=== PATIENT | male | born 1955 | race Caucasian/White ===

== ENCOUNTER 2019-07-14 21:31 | Inpatient (IN) ==
[2019-07-14] MEDS ORDERED: Diazepam INJ CARPUJECT 5 MG/ML ONE (21:38)
[2019-07-14] MEDS ORDERED: Diazepam INJ CARPUJECT 5 MG/ML IM ONE (22:03)
[2019-07-14 23:06] LABS: ABS Lymphocytes 2.2 10^3/ul (1.0-4.8); ABS Monocytes 0.4 10^3/ul (0-0.8); ABS Neutrophils 2.3 10^3/ul (1.5-7.7); Eosinophil % 0.6 %; Hematocrit 37 % (42-52); Hemoglobin 12.7 g/dL (14.0-18.0); Lymphocyte % 44.6 %; Mean Corpuscular HGB Conc 34 g/dL (31-36); Mean Corpuscular Hemoglobin 31 pg (27-31); Mean Corpuscular Volume 92 fL (80-94); Mean Platelet Volume 8.3 fL (7.4-10.4); Nucleated Red Blood Cells % 0.1; Platelet Count 224 10^3/uL (150-450); Red Blood Count 4.07 10^6 /uL (4.18-5.48); Red Cell Distribution Width 14 % (10-15); White Blood Count 4.9 10^3/uL (3.5-10.8)
[2019-07-14 23:21] LABS: Albumin 4.1 g/dL (3.2-5.2); Calcium 9.3 mg/dL (8.6-10.3); EGFR African American 109.8 (>60); EGFR Non-African American 90.7 (>60); Globulin 2.1 g/dL (2-4); Indirect Bilirubin 0.2 mg/dL (0.3-1.0); Potassium 3.7 mmol/L (3.5-5.0); Total Bilirubin 0.3 mg/dL (0.2-1.0); Total Protein 6.2 g/dL (6.4-8.9)
[2019-07-14 23:23] LABS: Urine Benzodiazepine Screen Presumptive Positive (None Detect); Urine Cannabinoids Screen None Detected (None Detect); Urine Opiates Screen None Detected (None Detect)
[2019-07-14 23:48] LABS: TSH Ultra Thyroid Stim Horm 0.92 mcIU/mL (0.34-5.60)
[2019-07-14 23:50] LABS: Free T4 0.8 ng/dL (0.61-1.12)
[2019-07-15 00:41] LABS: Urine Appearance Clear; Urine Bilirubin Negative (Negative); Urine Blood Negative (Negative); Urine Color Yellow; Urine Glucose Negative (Negative); Urine Ketones Negative (Negative); Urine Nitrite Negative (Negative); Urine Protein Negative (Negative); Urine Specific Gravity 1.031 (1.010-1.030); Urine Urobilinogen Negative (Negative)
[2019-07-15] MEDS ORDERED: LORazepam 2 mg VIAL 1 ml IV PUSH ONE (00:44)
[2019-07-15] MEDS ORDERED: Lorazepam PYXIS KEY PRN ×2 (00:44→01:10)
[2019-07-15] MEDS ORDERED: Lorazepam PYXIS KEY ONE (00:48)
[2019-07-15] MEDS ORDERED: LORazepam 2 mg VIAL 1 ml IV PUSH PRN ×2 (01:10→11:40)
[2019-07-15] MEDS ORDERED: Haloperidol 5 mg/ml SDV IV/IM 5 MG/ML AMP IV SLOW PU PRN (01:10)
[2019-07-15] MEDS ORDERED: NS 0.9% 1000 ml BAG 1,000 ML IV SCH (01:15)
[2019-07-15] MEDS ORDERED: Senna TAB 8.6 mg TAB PO PRN (01:33)
[2019-07-15] MEDS ORDERED: Docusate LIQ 100 MG/10 ML UDC PO PRN (01:35)
[2019-07-15] MEDS ORDERED: Haloperidol 5 mg/ml SDV IV/IM 5 MG/ML AMP IV SLOW PU ONE (02:00)
[2019-07-15] MEDS: Aspirin EC 81 mg TAB.EC (enteric coated) PO SCH (07:44)
[2019-07-15] MEDS: Enoxaparin 40 MG/0.4 ML SYR SUBCUT SCH (07:44)
[2019-07-16] MEDS ORDERED: Haloperidol 5 mg/ml SDV IV/IM 5 MG/ML AMP IM PRN (09:06)
[2019-07-16] MEDS ORDERED: LORazepam 2 mg VIAL 1 ml IV PUSH PRN ×3 (09:06→15:12)
[2019-07-16] MEDS: Enoxaparin 40 MG/0.4 ML SYR SUBCUT SCH (09:18)
[2019-07-16] MEDS: Aspirin EC 81 mg TAB.EC (enteric coated) PO SCH (09:18)
[2019-07-16] MEDS ORDERED: Lorazepam PYXIS KEY PRN (15:51)
[2019-07-16] MEDS: LORazepam 2 mg VIAL 1 ml IV PUSH PRN (17:10)
[2019-07-17] MEDS: LORazepam 2 mg VIAL 1 ml IV PUSH PRN ×2 (02:21→13:39)
[2019-07-17] MEDS: Aspirin EC 81 mg TAB.EC (enteric coated) PO SCH (09:23)
[2019-07-17] MEDS: Enoxaparin 40 MG/0.4 ML SYR SUBCUT SCH (09:23)
[2019-07-17] MEDS: Ziprasidone IM 20 mg VIAL 1 ml VIAL IM PRN (11:30)
[2019-07-18] MEDS: Aspirin EC 81 mg TAB.EC (enteric coated) PO SCH (08:45)
[2019-07-18] MEDS: Enoxaparin 40 MG/0.4 ML SYR SUBCUT SCH (08:45)
[2019-07-18] MEDS: LORazepam 2 mg VIAL 1 ml IV PUSH PRN (09:34)
[2019-07-18] MEDS: Ziprasidone IM 20 mg VIAL 1 ml VIAL IM PRN (12:33)
[2019-07-19] MEDS: LORazepam 2 mg VIAL 1 ml IV PUSH PRN ×3 (00:56→17:20)
[2019-07-19] MEDS: Aspirin EC 81 mg TAB.EC (enteric coated) PO SCH (09:25)
[2019-07-19] MEDS: Enoxaparin 40 MG/0.4 ML SYR SUBCUT SCH (09:25)
[2019-07-19] MEDS: Ziprasidone IM 20 mg VIAL 1 ml VIAL IM PRN (12:05)
[2019-07-20] MEDS: Aspirin EC 81 mg TAB.EC (enteric coated) PO SCH (11:47)
[2019-07-20] MEDS: Enoxaparin 40 MG/0.4 ML SYR SUBCUT SCH (11:47)
[2019-07-20] MEDS ORDERED: Haloperidol 5 mg/ml SDV IV/IM 5 MG/ML AMP IV SLOW PU ONE (12:06)
[2019-07-20] MEDS: LORazepam 2 mg VIAL 1 ml IV PUSH PRN (23:56)
[2019-07-21] MEDS: Aspirin EC 81 mg TAB.EC (enteric coated) PO SCH (08:02)
[2019-07-21] MEDS: Enoxaparin 40 MG/0.4 ML SYR SUBCUT SCH (08:14)
[2019-07-21] MEDS: LORazepam 2 mg VIAL 1 ml IV PUSH PRN (10:43)
[2019-07-22] MEDS: Aspirin EC 81 mg TAB.EC (enteric coated) PO SCH (10:26)
[2019-07-22] MEDS: Enoxaparin 40 MG/0.4 ML SYR SUBCUT SCH (10:34)
[2019-07-22] MEDS: Ziprasidone IM 20 mg VIAL 1 ml VIAL IM PRN (16:49)
[2019-07-22] MEDS: LORazepam 2 mg VIAL 1 ml IV PUSH PRN (23:08)
[2019-07-23] MEDS: Aspirin EC 81 mg TAB.EC (enteric coated) PO SCH (09:10)
[2019-07-23] MEDS: Enoxaparin 40 MG/0.4 ML SYR SUBCUT SCH (09:11)
[2019-07-23] MEDS: Ziprasidone IM 20 mg VIAL 1 ml VIAL IM PRN (12:39)
[2019-07-23] MEDS ORDERED: LORazepam 2 mg VIAL 1 ml IV PUSH PRN (15:51)
[2019-07-24] MEDS: Aspirin EC 81 mg TAB.EC (enteric coated) PO SCH (08:35)
[2019-07-24] MEDS: Enoxaparin 40 MG/0.4 ML SYR SUBCUT SCH (08:45)
[2019-07-24] MEDS ORDERED: LORazepam 2 mg VIAL 1 ml IV PUSH ONE (10:37)
[2019-07-24] MEDS ORDERED: Lorazepam PYXIS KEY PRN (10:37)
[2019-07-24] MEDS ORDERED: LORazepam 2 mg VIAL 1 ml ONE (10:41)
[2019-07-24] MEDS ORDERED: Lorazepam PYXIS KEY ONE (10:41)
[2019-07-25] MEDS: Enoxaparin 40 MG/0.4 ML SYR SUBCUT SCH (08:18)
[2019-07-25] MEDS: Aspirin EC 81 mg TAB.EC (enteric coated) PO SCH (08:18)
[2019-07-25] MEDS ORDERED: Lorazepam PYXIS KEY PRN ×2 (13:38→23:55)
[2019-07-25] MEDS ORDERED: Valproic Acid IV 250 MG in NS 0.9% 100 ml BAG 100 ML IVPB ONE (13:48)
[2019-07-25] MEDS: LORazepam 2 mg VIAL 1 ml IV PUSH PRN ×2 (13:51→22:25)
[2019-07-25] MEDS ORDERED: Ziprasidone IM 20 mg VIAL 1 ml VIAL IM PRN (23:50)
[2019-07-26] MEDS: LORazepam 2 mg VIAL 1 ml IV PUSH PRN ×3 (00:39→20:22)
[2019-07-26] MEDS: Aspirin EC 81 mg TAB.EC (enteric coated) PO SCH (10:57)
[2019-07-26] MEDS: Enoxaparin 40 MG/0.4 ML SYR SUBCUT SCH (11:00)
[2019-07-27] MEDS: Aspirin EC 81 mg TAB.EC (enteric coated) PO SCH (11:24)
[2019-07-27] MEDS: Enoxaparin 40 MG/0.4 ML SYR SUBCUT SCH (12:15)
[2019-07-27] MEDS: LORazepam 2 mg VIAL 1 ml IV PUSH PRN (20:50)
[2019-07-28] MEDS: Aspirin EC 81 mg TAB.EC (enteric coated) PO SCH (09:54)
[2019-07-28] MEDS: Enoxaparin 40 MG/0.4 ML SYR SUBCUT SCH (09:54)
[2019-07-28] MEDS: LORazepam 2 mg VIAL 1 ml IV PUSH PRN (20:12)
[2019-07-29] MEDS: Aspirin EC 81 mg TAB.EC (enteric coated) PO SCH (08:23)
[2019-07-29] MEDS: Enoxaparin 40 MG/0.4 ML SYR SUBCUT SCH (08:23)
[2019-07-29] MEDS: LORazepam 2 mg VIAL 1 ml IV PUSH PRN (11:39)
[2019-07-30] MEDS: Aspirin EC 81 mg TAB.EC (enteric coated) PO SCH (08:35)
[2019-07-30] MEDS: Enoxaparin 40 MG/0.4 ML SYR SUBCUT SCH (08:36)
[2019-07-31] MEDS ORDERED: Ziprasidone IM 20 mg VIAL 1 ml VIAL IM PRN (08:07)
[2019-07-31] MEDS ORDERED: Lorazepam PYXIS KEY PRN (08:07)
[2019-07-31] MEDS: Enoxaparin 40 MG/0.4 ML SYR SUBCUT SCH (11:12)
[2019-08-01] MEDS: Enoxaparin 40 MG/0.4 ML SYR SUBCUT SCH (08:15)
[2019-08-01] MEDS: LORazepam 2 mg VIAL 1 ml IM PRN (11:54)
[2019-08-02] MEDS: Enoxaparin 40 MG/0.4 ML SYR SUBCUT SCH (10:52)
[2019-08-02] MEDS: LORazepam 2 mg VIAL 1 ml IM PRN (21:34)
[2019-08-03] MEDS: Enoxaparin 40 MG/0.4 ML SYR SUBCUT SCH (08:53)
[2019-08-03] MEDS: LORazepam 2 mg VIAL 1 ml IM PRN (11:00)
[2019-08-04] MEDS: Enoxaparin 40 MG/0.4 ML SYR SUBCUT SCH (14:12)
[2019-08-05] MEDS: Enoxaparin 40 MG/0.4 ML SYR SUBCUT SCH (09:30)
[2019-08-05] MEDS: LORazepam 2 mg VIAL 1 ml IM PRN ×2 (12:29→20:47)
[2019-08-06] MEDS: Enoxaparin 40 MG/0.4 ML SYR SUBCUT SCH (09:53)
[2019-08-07] MEDS: Enoxaparin 40 MG/0.4 ML SYR SUBCUT SCH (10:23)
[2019-08-07] MEDS ORDERED: LORazepam 2 mg VIAL 1 ml IV PUSH PRN (11:39)
[2019-08-07] MEDS: LORazepam 2 mg VIAL 1 ml IM PRN (11:50)
[2019-08-08] MEDS: LORazepam 2 mg VIAL 1 ml IM PRN (10:00)
[2019-08-08] MEDS: Enoxaparin 40 MG/0.4 ML SYR SUBCUT SCH (11:41)
[2019-08-09] MEDS: Enoxaparin 40 MG/0.4 ML SYR SUBCUT SCH ×2 (09:32→09:57)
[2019-08-09] MEDS: LORazepam 2 mg VIAL 1 ml IM PRN (15:10)
[2019-08-10] MEDS: Enoxaparin 40 MG/0.4 ML SYR SUBCUT SCH (09:54)
[2019-08-10] MEDS: LORazepam 2 mg VIAL 1 ml IM PRN (19:21)
[2019-08-11] MEDS: Enoxaparin 40 MG/0.4 ML SYR SUBCUT SCH (08:24)
[2019-08-11] MEDS: LORazepam 2 mg VIAL 1 ml IM PRN (14:29)
[2019-08-12] MEDS: Enoxaparin 40 MG/0.4 ML SYR SUBCUT SCH (10:47)
[2019-08-13] MEDS: Enoxaparin 40 MG/0.4 ML SYR SUBCUT SCH (11:12)
[2019-08-14] MEDS: Enoxaparin 40 MG/0.4 ML SYR SUBCUT SCH (08:22)
[2019-08-15] MEDS: Enoxaparin 40 MG/0.4 ML SYR SUBCUT SCH (07:59)
[2019-08-15] MEDS ORDERED: Magnesium Hydroxide LIQ 30 ML UDC PO PRN (09:10)
[2019-08-15] MEDS: Magnesium Hydroxide LIQ 30 ML UDC PO SCH (20:45)
[2019-08-16] MEDS: Enoxaparin 40 MG/0.4 ML SYR SUBCUT SCH (09:12)
[2019-08-16] MEDS: Magnesium Hydroxide LIQ 30 ML UDC PO SCH ×3 (09:12→21:49)
[2019-08-16] MEDS: NS 0.9% 1000 ml BAG 1,000 ML IV SCH (18:23)
[2019-08-16] MEDS: Senna TAB 8.6 mg TAB PO PRN (21:49)
[2019-08-17] MEDS: NS 0.9% 1000 ml BAG 1,000 ML IV SCH (07:42)
[2019-08-17] MEDS: Enoxaparin 40 MG/0.4 ML SYR SUBCUT SCH (10:30)
[2019-08-17] MEDS: Polyethylene Glycol 3350 17 GM PACKET PO PRN (10:30)
[2019-08-17] MEDS: Magnesium Hydroxide LIQ 30 ML UDC PO SCH ×2 (10:54→19:08)
[2019-08-18 07:09] LABS: ABS Lymphocytes 1.8 10^3/ul (1.0-4.8); ABS Monocytes 0.4 10^3/ul (0-0.8); Eosinophil % 0.7 %; Hematocrit 36 % (42-52); Hemoglobin 12.4 g/dL (14.0-18.0); Mean Corpuscular HGB Conc 34 g/dL (31-36); Mean Corpuscular Hemoglobin 31 pg (27-31); Mean Corpuscular Volume 91 fL (80-94); Mean Platelet Volume 8.5 fL (7.4-10.4); Platelet Count 236 10^3/uL (150-450); Red Blood Count 3.97 10^6 /uL (4.18-5.48); Red Cell Distribution Width 14 % (10-15); White Blood Count 4.3 10^3/uL (3.5-10.8)
[2019-08-18 07:26] LABS: BUN/Creatinine Ratio 22.2 (8-20); Calcium 8.7 mg/dL (8.6-10.3); EGFR African American 155.1 (>60); EGFR Non-African American 128.2 (>60); Potassium 4.1 mmol/L (3.5-5.0)
[2019-08-18] MEDS: Enoxaparin 40 MG/0.4 ML SYR SUBCUT SCH (10:27)
[2019-08-18] MEDS: Magnesium Hydroxide LIQ 30 ML UDC PO SCH ×2 (10:27→23:25)
[2019-08-19] MEDS: Enoxaparin 40 MG/0.4 ML SYR SUBCUT SCH (07:27)
[2019-08-19] MEDS: Magnesium Hydroxide LIQ 30 ML UDC PO SCH (07:34)
[2019-08-19] MEDS ORDERED: Magnesium Hydroxide LIQ 30 ML UDC PO PRN (09:00)
[2019-08-20] MEDS: Enoxaparin 40 MG/0.4 ML SYR SUBCUT SCH (10:37)
[2019-08-21] MEDS: Enoxaparin 40 MG/0.4 ML SYR SUBCUT SCH (09:42)
[2019-08-22] MEDS: Enoxaparin 40 MG/0.4 ML SYR SUBCUT SCH (11:09)
[2019-08-23] MEDS: Enoxaparin 40 MG/0.4 ML SYR SUBCUT SCH (09:34)
[2019-08-23] MEDS ORDERED: Lorazepam PYXIS KEY PRN (12:25)
[2019-08-23] MEDS ORDERED: LORazepam 2 mg VIAL 1 ml IM ONE (12:25)
[2019-08-24] MEDS: Enoxaparin 40 MG/0.4 ML SYR SUBCUT SCH (11:39)
[2019-08-25] MEDS: Enoxaparin 40 MG/0.4 ML SYR SUBCUT SCH (09:45)
[2019-08-26] MEDS: Enoxaparin 40 MG/0.4 ML SYR SUBCUT SCH (11:54)
[2019-08-27] MEDS: Enoxaparin 40 MG/0.4 ML SYR SUBCUT SCH (10:57)
[2019-08-28] MEDS: Enoxaparin 40 MG/0.4 ML SYR SUBCUT SCH (09:48)
[2019-08-29] MEDS: Enoxaparin 40 MG/0.4 ML SYR SUBCUT SCH (08:54)
[2019-08-29] MEDS: LORazepam 2 mg VIAL 1 ml IM PRN (13:09)
[2019-08-30] MEDS: Enoxaparin 40 MG/0.4 ML SYR SUBCUT SCH (10:43)
[2019-08-31] MEDS: Enoxaparin 40 MG/0.4 ML SYR SUBCUT SCH (11:46)
[2019-09-01] MEDS: Enoxaparin 40 MG/0.4 ML SYR SUBCUT SCH (09:59)
[2019-09-02] MEDS: Enoxaparin 40 MG/0.4 ML SYR SUBCUT SCH (12:49)
[2019-09-03] MEDS: Enoxaparin 40 MG/0.4 ML SYR SUBCUT SCH (11:24)
[2019-09-03] MEDS: LORazepam 2 mg VIAL 1 ml IM PRN (21:20)
[2019-09-04] MEDS: Enoxaparin 40 MG/0.4 ML SYR SUBCUT SCH (09:14)
[2019-09-05] MEDS: Enoxaparin 40 MG/0.4 ML SYR SUBCUT SCH (09:51)
[2019-09-05] MEDS: LORazepam 2 mg VIAL 1 ml IM PRN (19:02)
[2019-09-06] MEDS: Enoxaparin 40 MG/0.4 ML SYR SUBCUT SCH (12:03)
[2019-09-07] MEDS: Enoxaparin 40 MG/0.4 ML SYR SUBCUT SCH (09:42)
[2019-09-08] MEDS: Enoxaparin 40 MG/0.4 ML SYR SUBCUT SCH (10:37)
[2019-09-09] MEDS: Enoxaparin 40 MG/0.4 ML SYR SUBCUT SCH (10:42)
[2019-09-09] MEDS: Senna TAB 8.6 mg TAB PO PRN (20:24)
[2019-09-10] MEDS: Polyethylene Glycol 3350 17 GM PACKET PO PRN (10:58)
[2019-09-10] MEDS: Enoxaparin 40 MG/0.4 ML SYR SUBCUT SCH (10:59)
[2019-09-11] MEDS: Enoxaparin 40 MG/0.4 ML SYR SUBCUT SCH (09:16)
[2019-09-11] MEDS: Polyethylene Glycol 3350 17 GM PACKET PO PRN (10:29)
[2019-09-12] MEDS: Enoxaparin 40 MG/0.4 ML SYR SUBCUT SCH (10:29)
[2019-09-13] MEDS: Enoxaparin 40 MG/0.4 ML SYR SUBCUT SCH (10:57)
[2019-09-14] MEDS: Enoxaparin 40 MG/0.4 ML SYR SUBCUT SCH (10:01)
[2019-09-15] MEDS: Enoxaparin 40 MG/0.4 ML SYR SUBCUT SCH (10:39)
[2019-09-16] MEDS: Enoxaparin 40 MG/0.4 ML SYR SUBCUT SCH (10:46)
[2019-09-17 07:04] LABS: ABS Lymphocytes 0.9 10^3/ul (1.0-4.8); ABS Monocytes 0.6 10^3/ul (0-0.8); ABS Neutrophils 4.3 10^3/ul (1.5-7.7); Eosinophil % 0.5 %; Hematocrit 41 % (42-52); Hemoglobin 14.1 g/dL (14.0-18.0); Lymphocyte % 15.7 %; Mean Corpuscular HGB Conc 35 g/dL (31-36); Mean Corpuscular Hemoglobin 31 pg (27-31); Mean Corpuscular Volume 91 fL (80-94); Platelet Count 206 10^3/uL (150-450); Red Blood Count 4.51 10^6 /uL (4.18-5.48); Red Cell Distribution Width 13 % (10-15); White Blood Count 5.9 10^3/uL (3.5-10.8)
[2019-09-17 07:27] LABS: Calcium 8.7 mg/dL (8.6-10.3); EGFR African American 137.4 (>60); EGFR Non-African American 113.5 (>60)
[2019-09-17] MEDS: Enoxaparin 40 MG/0.4 ML SYR SUBCUT SCH (11:12)
[2019-09-18] MEDS: Enoxaparin 40 MG/0.4 ML SYR SUBCUT SCH (11:00)
[2019-09-19] MEDS: Enoxaparin 40 MG/0.4 ML SYR SUBCUT SCH (09:57)
[2019-09-20] MEDS: Enoxaparin 40 MG/0.4 ML SYR SUBCUT SCH (12:32)
[2019-09-20 18:56] LABS: Urine Benzodiazepine Screen None Detected (None Detect); Urine Cannabinoids Screen None Detected (None Detect); Urine Opiates Screen None Detected (None Detect)
[2019-09-21] MEDS: Enoxaparin 40 MG/0.4 ML SYR SUBCUT SCH (09:52)
[2019-09-21] MEDS: Senna TAB 8.6 mg TAB PO PRN (09:52)
[2019-09-21] MEDS: Polyethylene Glycol 3350 17 GM PACKET PO PRN (10:02)
[2019-09-21 11:45] VITALS: BP 133/77
[2019-09-21] MEDS: Lactulose 30 ml UDC PO SCH ×2 (16:43→20:08)
[2019-09-22 06:45] LABS: Albumin 3.6 g/dL (3.2-5.2); Albumin/Globulin Ratio 1.4 (1-3); BUN/Creatinine Ratio 16.4 (8-20); Calcium 8.7 mg/dL (8.6-10.3); EGFR African American 144.5 (>60); EGFR Non-African American 119.4 (>60); Globulin 2.5 g/dL (2-4); Potassium 3.8 mmol/L (3.5-5.0); Total Bilirubin 0.2 mg/dL (0.2-1.0); Total Protein 6.1 g/dL (6.4-8.9)
[2019-09-22] MEDS: Enoxaparin 40 MG/0.4 ML SYR SUBCUT SCH (08:51)
[2019-09-22] MEDS: Lactulose 30 ml UDC PO SCH (08:51)
== END 2019-09-22 10:30 ==
LOC: ED 21:31 → MED 07-15 02:20
PROVIDERS: ADMIT Hospitalist; ATTEND Internal Medicine